=== PATIENT | male | born 1945 | race Caucasian/White ===

== ENCOUNTER → 2016-08-05 | Outpatient (CLI) | payer MEDICARE, OTHER ==
[~2016-08-05] MED LIST: Ecotrin PO; Motrin PO; NEXIUM40 MG PO; PRAVACHOL40 MG PO; SINGULAIR10 MG PO
== END | disposition home or self-care (01) ==
LOC: CDC 09:19
DX: R00.1 Bradycardia, unspecified (principal); I49.3 Ventricular premature depolarization; H25.11 Age-related nuclear cataract, right eye
CPT/HCPCS: 93000